=== PATIENT | male | born 1950 | race Caucasian/White ===

== ENCOUNTER 2016-12-06 16:14 | Inpatient (IN) | payer MEDICARE ==
--- NOTE | ~2016-12-06 | HP ---
Unit #: [id number] #: [id number] Patient: LANDON TUCKER [id number] [address] [place], [place] [address] [id number] I MR#: [id number] NAME: LANDON TUCKER. ROOM: 311 Age: 66 Sex: M Admission Date: 12/06/2016 : 1950 Attending Physician: Yadiel Whyte M.D. Primary Care Physician: Sultana Gonzales M.D. HISTORY AND PHYSICAL ADDENDUM The patient was admitted for further observation of chest pain. Serial cardiac enzymes were negative, and he ruled out for a myocardial infarction. TSH was normal. He underwent an exercise Cardiolite stress test, which revealed good exercise tolerance. Nuclear images revealed no ischemia on preliminary pictures. The patient is stable and will be discharged home today. He does have a history of coronary artery disease with previous stents. His last cardiac catheterization in December 2015 revealed up to 50% in-stent stenosis in the LAD. Will start on a calcium channel silvia to prevent angina. No nitrates will be prescribed due to allergy. The patient has been instructed to follow up with his primary care provider in 1-2 weeks and with our office in 6-8 weeks. The office will call him with an appointment. He would benefit from PFT studies as an outpatient to rule out a pulmonary cause for his symptoms. Dictated by Pearl Rene APRN for Shania Medrano TD: 12/07/2016 19:04 JOB #: [id number] HISTORY AND PHYSICAL Page 1 of 1 X X HISTORY AND PHYSICAL
--- NOTE | ~2016-12-06 | EKG ---
PATIENT: LANDON TUCKER UNIT #: [id number] Ventricular Rate: 79 BPM Atrial Rate: 79 BPM P-R Interval: 174 ms QRS Duration: 92 ms Q-T Interval: 378 ms QTC Calculation(Bezet): 433 ms P [place]: 64 degrees Calculated R [place]: 77 degrees Calculated T [place]: 65 degrees Diagnosis Line: Normal sinus rhythm Diagnosis Line: Normal ECG Diagnosis Line: When compared with ECG of 07-JAN-2016 05:40, Diagnosis Line: KS interval has decreased Diagnosis Line: Confirmed by KULDIP DAVID MD ([id number]) on Diagnosis Line: 12/07/2016 8:53:17 AM INTERPRETING : VERONA
--- NOTE | ~2016-12-06 | TH ---
Unit #: [id number] #: [id number] Patient: LANDON TUCKER [id number] [address] [address] [id number] I MR#: [id number] NAME: LANDON TUCKER. : 1950 SEX: M STUDY DATE/TIME: UNIT: C3A PCU ROOM: 311 STUDY DESCRIPTION: Nuclear Study Attending Physician: Yadiel Whyte M.D. Primary Care Physician: Sultana Gonzales M.D. CARDIOLOGY REPORT EXAM Perfusion Imaging SUMMARY Patient underwent Cardiolite stress test. Received a resting dose of 11.65 mCi and a stress dose of 35.3 mCi. On rest imaging, patient appears to have normal wall motion with preserved ejection fraction. Patient's LVEF is 65%. On perfusion imaging, comparing rest and stress imaging, there appears to be no reversible perfusion defects. CONCLUSION 1. No obvious ischemia. 2. Preserved ejection fraction. 3. ECG portion dictated separately. Dictated by... Shania Medrano/carmen TD: 12/08/2016 07:03 JOB #: [id number] CARDIOLOGY REPORT Page 1 of 1 X CODI GONSALEZ MD CARDIOLOGY REPORT
--- NOTE | ~2016-12-06 | CR72 ---
[facility] A Service of [facility] RADIOLOGY TEXT RESULTS PATIENT: LANDON TUCKER LOCATION: [facility] 311-01 : 50 UNIT #: [id number] AGE: [address]: Yadiel Whyte MD SEX: M ORDER DR: [id number] [facility] [address] [place], [place] [address] [id number] MR#: [id number] Acc #: [id number] NAME: LANDON TUCKER. : 1950 SEX: M STUDY DATE/TIME: 12/06/2016 16:26 UNIT: STACIA ROOM: STUDY DESCRIPTION: CR Chest Single View Portable Attending Physician: Mesfin Rose D.O. Ordering Physician: Mesfin Rose D.O. Primary Care Physician: Sultana Gonzales M.D. MEDICAL IMAGING REPORT This report is preliminary unless electronic signature is present EXAM Portable AP view of the chest. COMPARISON April 21, 2016 and January 04, 2016, as well as September 01, 2014. INDICATIONS 66-year-old male with chest pain, cough and chest congestion for 3 days. 40-year smoking history. FINDINGS Cardiomediastinal silhouette is within normal limits. No evidence of pneumothorax, pleural effusion or acute airspace disease. Nipple shadow over the left lung is stable from January 04, 2016, and only persists on 1 of the 2 AP views today. IMPRESSION No acute radiographic abnormality of the chest. Dictated by... Miguel Knutson M.D. THIS IS AN ELECTRONICALLY VERIFIED REPORT Miguel Knutson M.D. at 12/09/2016 3:31 PM En TD: 12/06/2016 18:10 JOB #: [id number] MEDICAL IMAGING REPORT Page 1 of 1 COPY
--- NOTE | ~2016-12-06 | HP ---
Unit #: [id number] #: [id number] Patient: LANDON TUCKER [id number] [address] [place], [place] [address] [id number] I MR#: [id number] NAME: LANDON TUCKER. ROOM: 311 Age: 66 Sex: M Admission Date: 12/06/2016 : 1950 Attending Physician: Yadiel Whyte M.D. Primary Care Physician: Sultana Gonzales M.D. HISTORY AND PHYSICAL CHIEF COMPLAINT Chest discomfort. HISTORY Mr. Tucker is a well known patient to Dr. Warren. He has known arteriosclerotic heart disease. He had a cardiac catheterization 01/07/[address] Warren. At that time it showed a normal left main, LAD with proximal to mid vessel with an intracoronary stent with diffuse disease up to 50%, mid and distal LAD was normal. Circumflex artery had a proximal stent and it was widely patent. All three marginal branches were normal. Right coronary artery with proximal stent that was widely patent. All three marginal branches were normal. Right coronary artery had multiple stents in the mid right coronary artery with diffuse disease up to 20% to 30%, ostial right coronary artery was normal. Patent ductus arteriosus stent is widely patent. EF was 55%. He presents again with stating for the last week to week and a half. He has been having chest discomfort and yesterday he had a stabbing pain in the epigastrium area radiating to the left chest. When the stabbing pain went away he has been left with a constant pressure type feeling in his chest. He also notes for the last couple of weeks that his blood pressures have been labile and at times his systolic has been up to 180. The patient does take his own blood pressure. He has had no nausea, no vomiting, no diaphoresis and no shortness of air with the discomfort. The current pressure has been constant since yesterday. PAST MEDICAL HISTORY 1. Arteriosclerotic heart disease with multiple PCIs and multiple stents, EF of 55%. 2. Paroxysmal supraventricular tachycardia, secondary to chronic obstructive pulmonary disease. 3. COPD. 4. Episodic dizziness. 5. Hypertension. 6. Dyslipidemia. 7. Diabetes type 2. 8. Nicotine abuse. 9. Depression/anxiety. 10. 2D echo 04/2013, EF 50% to 55%, mild left ventricular hypertrophy, mild tricuspid regurgitation, mild to moderate mitral regurgitation. No pericardial effusion. 11. Gastroesophageal reflux disease. PAST SURGICAL HISTORY 1. Cardiac catheterization, last one in 2015. Unit #: [id number] #: [id number] Patient: LANDON TUCKER 2. Colonoscopy 08/22/2013 with polypectomy. 3. EGD on 04/29/2013 revealed distal esophageal Schatzki ring, small hiatal hernia, mild antral gastritis. 4. Status post esophageal dilatation. 5. Back surgery x2. 6. TURP 04/12/2010. HOME MEDICATIONS Lipitor 40 mg daily; Zestril 5 mg daily; Plavix 75 mg daily; Paxil 20 mg daily; Xanax 0.25 mg t.i.d. p.r.n.; aspirin 81 mg daily. ALLERGIES Imdur causes a rash; penicillin causes hives. SOCIAL HISTORY Patient continues to smoke a pack per day. No alcohol. No illicit drug use. FAMILY HISTORY Significant for arteriosclerotic heart disease. REVIEW OF SYSTEMS No fever. No chills. No cough. No sinusitis or bronchitis. No difficulties swallowing. Patient with chronic COPD. No diarrhea, constipation. No hematochezia. No bright red bleeding per rectum. No melena. No hematuria. No lower extremity edema. No difficulty walking. No seizures. PHYSICAL EXAMINATION GENERAL: Well developed, well nourished white male in no acute distress. VITAL SIGNS: Temp 98.5, pulse 54, blood pressure 129/90, height 5'8", weight 63.5 kg, BMI 21. HEENT: Normocephalic, atraumatic. No xanthelasma. Pupils equal, round, reactive to light. Extraocular movements intact. NECK: No jugular venous distention. No elevated CVP. LUNGS: Clear to auscultation anteriorly, posteriorly, bilaterally. Decreased bases only. HEART: S1 and S2. Soft systolic murmur. No lift. PMI nondisplaced. ABDOMEN: Soft, nontender, nondistended. No clubbing, cyanosis or edema. 2+ pulses bilaterally. SKIN: No rash. SPINE: No scoliosis. DIAGNOSTIC STUDIES IMAGING STUDIES: No acute radiographic abnormality. LABORATORY STUDIES: Sodium 141, potassium 4.5, chloride 110, CO2 27, BUN 25, creatinine 0.9, glucose 94. Normal protein, albumin, AST 16, ALT 17, alk phos 48. Troponin less than 0.03, less than 0.03, (1) troponin less than 0.05 and less than 0.05. PT 10.7, INR 1.0, PTT 27.7. Hemoglobin 14.1, hematocrit 43.0, white blood cell count 6.8, platelet count 212. ASSESSMENT 1. Known arteriosclerotic heart disease with multiple PCI stents last catheterization in 2016 with patent stents, with medical therapy recommended. 2. Hypertension. Unit #: [id number] #: [id number] Patient: LANDON TUCKER 3. Diabetes. 4. COPD with continued tobacco abuse. PLAN Echocardiogram has been obtained. We will have a Cardiolite treadmill stress test today. The patient is negative for myocardial infarction with four negative troponins. Differential diagnosis does include gastritis, esophagitis. May require GI consult. We will also add PPI. We will add fasting lipid panel and TSH to the blood in the lab. Dictated by Hafsa Mora A.P.R.N. for Macy Flood M.D. GRACE/quincy TD: 12/07/2016 11:23 JOB #: [id number] CC: [facility] HISTORY AND PHYSICAL Page 1 of 1 X X HISTORY AND PHYSICAL
--- NOTE | ~2016-12-06 | ST ---
Unit #: [id number] #: [id number] Patient: LANDON TUCKER [id number] [address] [address] [id number] I MR#: [id number] NAME: LANDON TUCKER. : 1950 SEX: M STUDY DATE/TIME: UNIT: C3A PCU ROOM: 311 STUDY DESCRIPTION: Stress Test Attending Physician: Yadiel Whyte M.D. Primary Care Physician: Sultana Gonzales M.D. CARDIOLOGY REPORT EXAM Stress Test INDICATIONS Chest discomfort. SUMMARY Patient underwent Cardiolite stress test. Patient exercised on Dajuan protocol for 9 minutes achieving a workload MET of 10.1. Patient's resting heart rate 56 beats/minute which increased to 129 beats/minute representing 84% of the maximum age-predicted heart rate. Patient's resting blood pressure was 154/83 mmHg which increased to 170/83 mmHg. Patient's resting ECG shows normal sinus rhythm with normal ST segments. Patient's stress ECG shows sinus tachycardia with [address] segment depression in inferior leads. There was no ventricular or supraventricular ectopy noted. There are no pauses noted. CONCLUSION 1. Submaximal Cardiolite stress test ECG portion though patient has only one beat less than maximum heart rate. 2. Good exercise tolerance. 3. Abnormal ECG portion of the Cardiolite stress test for ischemia. 4. Normal blood pressure response and heart rate to exercise. 5. Perfusion imaging to be dictated separately. Dictated by... Codi Gonsalez M.D. DC/carmen TD: 12/08/2016 06:55 JOB #: [id number] Unit #: [id number] #: [id number] Patient: LANDON TUCKER CARDIOLOGY REPORT Page 1 of 1 X CODI GONSALEZ MD CARDIOLOGY REPORT
[~2016-12-06 16:14] MED LIST: ALPRAZOLAM PO; ALPRAZOLAM0.25 MG PO; AMLODIPINE BESYL5 MG PO; ASPIRIN PO; ASPIRIN81 M1 PO; ASPIRIN81 MG PO; BENZONATATE PO; CELEXA PO; CIPRO PO; CLOPIDOGREL75 MG PO; GLUCOTROL PO; HYDROCODON-ACE1 EAC7 PO; IBUPROFEN400 MG PO; IMDUR PO; LIPITOR PO; LIPITOR20 MG PO; LISINOPRIL10 MG PO; LISINOPRIL20 MG PO; MEDROL DOSEPAK4 MG PO; MEDROL4 MG/DOSE- PO; METOPROLOL SUCC25 MG PO; NICOTINE PATCH1 EACH TD; NICOTINE T1 PATCH .2 TOP; NITROGLYGERIN0.4 MG SL; NITROGYLCERIN SUBLINGUAL; NITROSTAT0.4 MG SL; ORUDIS75 M1 DOB; PAXIL PO; PAXIL40 MG PO; PLAVIX PO; PRILOSEC20 MG PO; PROTONIX PO; ROBITUSSIN A-C S5 ML PO; TOPROL XL PO; XANAX0.5 M1 PO
[2016-12-06 16:18] LABS: BASOPHIL% 0.6 % (0-2.5); DIFF IND NO; EOSINOPHIL# 0.1 X10e3 (0-0.7); EOSINOPHIL% 1.8 % (0.0-7.0); HEMOGLOBIN 14.1 gm/dL (13.0-16.0); LYMPHOCYTE# 2.2 X10e3 (1.0-3.5); MEAN CELL VOLUME 92.1 FL (83-96); MEAN CORPUSCULAR HEMOGLOBIN 30.3 PG (28-34); MEAN CORPUSCULAR HGB CONC 32.9 g/dL (30-36); MEAN PLATELET VOLUME 8.8 FL (6.5-11.5); MONOCYTE# 0.5 X10e3 (0-1.0); NEUTROPHIL% 58.6 % (40-75); PLATELET COUNT 212 X10e3 (140-420); RED BLOOD COUNT 4.67 X10e (3.90-5.60); WHITE BLOOD COUNT 6.8 X10e3 (4.0-10.5)
[2016-12-06 16:21] LABS: POC - CKMB <1.0 ng/mL (0.0-7.9); POC - TROPONIN <0.05 ng/mL (<=0.05)
[2016-12-06 16:32] LABS: PARTIAL THROMBOPLASTIN TIME 27.7 SECONDS (23.5-31.3); PROTHROMBIN TIME (PATIENT) 10.7 SECONDS (9.6-11.5)
[2016-12-06 16:38] LABS: ALBUMIN SERUM 3.8 g/dL (3.5-5.0); ALKALINE PHOSPHATASE 48 U/L (32-92); ALT (SGPT) 17 U/L (10-40); AST (SGOT) 16 U/L (10-42); BILIRUBIN,TOTAL 0.4 mg/dL (0.2-2.0); BLOOD UREA NITROGEN 25 mg/dL (9-23); BUN/CREATININE RATIO 22.72; CALCIUM SERUM 8.9 mg/dL (8.4-10.2); CARBON DIOXIDE 26 mmol/L (22-31); CHLORIDE 110 mmol/L (100-111); CREATININE SERUM 1.1 mg/dL (0.6-1.4); GLOM FILT RATE Estimated 69.6 mL/min (>60); GLUCOSE FASTING 103 mg/dL (70-110); POTASSIUM 4.7 mmol/L (3.5-5.1); PROTEIN TOTAL SERUM 6.3 g/dL (6.0-8.3); SODIUM 142 mmol/L (135-145)
[2016-12-06 16:41] LABS: BILIRUBIN, DIRECT <0.1 mg/dL (0.0-0.2); BILIRUBIN,INDIRECT 0.3 mg/dL (0.0-0.9)
[2016-12-06 18:08] LABS: POC - CKMB <1.0 ng/mL (0.0-7.9); POC - TROPONIN <0.05 ng/mL (<=0.05)
[2016-12-06] MEDS ORDERED: ZESTRIL5 MG PO (18:45)
[2016-12-06] MEDS ORDERED: LIPITOR40 MG PO (18:45)
[2016-12-06] MEDS ORDERED: CLOPIDOGREL75 MG PO (18:46)
[2016-12-06] MEDS ORDERED: PAXIL PO (18:46)
[2016-12-06] MEDS ORDERED: ALPRAZOLAM PO (18:46)
[2016-12-06] MEDS ORDERED: BAYER CHEWABLE81 MG PO (18:48)
[2016-12-07 06:17] LABS: BUN/CREATININE RATIO 27.77; CREATININE SERUM 0.9 mg/dL (0.6-1.4); GLOM FILT RATE Estimated 88.7 mL/min (>60); POTASSIUM 4.5 mmol/L (3.5-5.1)
[2016-12-07] MEDS ORDERED: NITROSTAT0.4 MG SL (17:51)
[2016-12-07] MEDS ORDERED: AMLODIPINE BESYL5 MG PO ×2 (17:51→17:54)
== END 2016-12-07 19:14 | disposition home or self-care (01) | DRG 313 ==
LOC: CED 16:14 → CEDOF 18:35 → C3A PCU 21:21
PROVIDERS: Emergency Medicine; Internal Medicine Cardiovascular Disease
PROC: B246ZZZ Ultrasonography of Right and Left Heart (ICD-10-PCS; principal; 2016-12-07)
DX: R07.9 Chest pain, unspecified (principal); I25.2 Old myocardial infarction; J44.9 Chronic obstructive pulmonary disease, unspecified; I10 Essential (primary) hypertension; I25.10 Atherosclerotic heart disease of native coronary artery without angina pectoris; Z95.5 Presence of coronary angioplasty implant and graft; F17.210 Nicotine dependence, cigarettes, uncomplicated; Z88.0 Allergy status to penicillin; Z88.8 Allergy status to other drugs, medicaments and biological substances; E78.5 Hyperlipidemia, unspecified; E11.9 Type 2 diabetes mellitus without complications; F32.9 Major depressive disorder, single episode, unspecified; F41.9 Anxiety disorder, unspecified; K21.9 Gastro-esophageal reflux disease without esophagitis
CPT/HCPCS: 36415; 71010; 78452; 80048; 80076; 82550; 82553; 84443; 84484; 85025; 85610; 85730; 93005; 93017; 93306; 99285; A9500